=== PATIENT | male | born 1995 | race Two or more races ===

== ENCOUNTER 2020-11-05 00:23 | Emergency (ER) | payer OTHER ==
[2020-11-05] MEDS ORDERED: PROCHLORPERAZINE 10 MG/2 ML VIAL IVP STA (01:38)
[2020-11-05] MEDS ORDERED: KETOROLAC 30 MG/ML VIAL IVP STA (01:38)
[2020-11-05] MEDS ORDERED: SODIUM CHLORIDE 0.9% 1,000 ML IV STA (01:38)
[2020-11-05] MEDS ORDERED: diphenhydrAMINE INJ 50 MG/ML VIAL IVP STA (01:38)
[2020-11-05] MEDS ORDERED: DEXAMETHASONE 10 MG/ML VIAL IVP STA (01:43)
--- NOTE | 2020-11-05 02:12 | ED Physician Documentation ---
PD HPI HEADACHE - Stated complaint Stated Complaint: VOMITING, WEAKNESS - Chief complaint Chief Complaint: Abd Pain - History obtained from History obtained from: Patient - History of Present Illness Timing - onset: Enter time (1230), Today Timing - onset during: Rest Timing - duration: Hours Timing - details: Abrupt onset, Still present Worst headache ever?: No: Worst headache ever? Location: Front Quality: Aching Associated symptoms: Nausea, Vomiting. No: Fever, Stiff neck, Weakness, Numbness, Syncope, Seizure, Eye pain, Vision changes Improved by: Rest, Dark room, Quiet Worsened by: Light, Noise Contributing factors: No: Anticoagulated Similar symptoms before: Diagnosis (migraine) Recently seen: Not recently seen - Additional information Additional information: Previously well 24-year-old male who has a history of migraines as a child has developed a headache earlier in the day today he subsequently developed some nausea and vomiting presents to the emergency department this evening with vomiting. He has persistence of the headache it is not as bad as it was and he does have still nausea. He believes his symptoms are improving. He has not had had to have migraine rescue previously. He has had a prior issue similar to this with nausea and vomiting that time was associated with what was assumed to be gastroenteritis. He does have use cannabis and not a lot of it and he has not had repeated episodes. Review of Systems Constitutional: denies: Fever Eyes: reports: Photophobia. denies: Decreased vision Ears: denies: Ear pain Nose: denies: Rhinorrhea / runny nose, Congestion Throat: denies: Sore throat Cardiac: denies: Chest pain / pressure, Palpitations Respiratory: denies: Dyspnea, Cough GI: reports: Nausea, Vomiting. denies: Abdominal Pain, Constipation, Diarrhea : denies: Dysuria, Frequency PD PAST MEDICAL HISTORY - Past Medical History Past Medical History: Yes Neuro: Migraines - Past Surgical History Past Surgical History: No - Present Medications Home Medications: Ambulatory Orders Medication Instructions Recorded Confirmed Ondansetron Odt [Zofran] 4 mg TL Q6H PRN #10 tablet 04/22/19 - Allergies Allergies/Adverse Reactions: Allergies Allergy/AdvReac Type Severity Reaction Status Date / Time latex AdvReac Rash Verified 11/05/20 00:26 - Social History Does the pt smoke?: No Smoking Status: Never smoker Does the pt drink ETOH?: No Does the pt have substance abuse?: Yes Substance Use and Type: Marijuana - Immunizations Immunizations are current?: Yes PD ED PE NORMAL - Vitals Vital signs reviewed: Yes (hypertensive ) - General General: Alert and oriented X 3, No acute distress, Well developed/nourished - HEENT HEENT: Atraumatic, PERRL, EOMI - Neck Neck: Supple, no meningeal sign, No bony TTP - Cardiac Cardiac: RRR, No murmur - Respiratory Respiratory: No respiratory distress, Clear bilaterally - Abdomen Abdomen: Normal bowel sounds, Soft, Non tender, Non distended, No organomegaly - Back Back: No CVA TTP, No spinal TTP - Derm Derm: Normal color, Warm and dry, No rash - Extremities Extremities: No deformity, No edema - Neuro Neuro: Alert and oriented X 3, branch service specialist 2-12 intact, No motor deficit, No sensory deficit, Normal speech Eye Opening: Spontaneous Motor: Obeys Commands Verbal: Oriented GCS Score: 15 - Psych Psych: Normal mood, Normal affect Results - Vitals Vitals: Vital Signs - 24 hr 11/05/20 00:26 Temperature 36.5 C Heart Rate 72 Respiratory 16 Rate Blood Pressure 145/84 H O2 Saturation 100 Oxygen O2 Source Room air PD MEDICAL DECISION MAKING - ED course Complexity details: reviewed old records, reviewed results, re-evaluated patient, considered differential, d/w patient ED course: 24-year-old male with a headache and vomiting is treated for migraine with a cocktail consisting of a liter of saline 30 mg of Toradol 10 mg of Compazine 25 mg of Benadryl and 10 mg of dexamethasone. Departure - Departure Disposition: 01 Home, Self Care Clinical Impression: Migraine Qualifiers: Migraine type: without aura Status migrainosus presence: without status migrainosus Intractability: not intractable Qualified Code(s): G43.009 - Migraine without aura, not intractable, without status migrainosus Condition: Stable Instructions: ED Headache Migraine Follow-Up: [facility] [Provider Group]
[2020-11-05 03:30] VITALS: BP 131/81
== END 2020-11-05 03:45 | disposition home or self-care (01) ==
LOC: ED 00:23
DX: G43.009 Migraine without aura, not intractable, without status migrainosus (principal)
CPT/HCPCS: 96374; 96375; 99284; 99285; J1200

== ENCOUNTER 2022-07-30 00:21 | Emergency (ER) | payer OTHER ==
--- NOTE | 2022-07-30 00:35 | ED Physician Documentation ---
PD HPI NVD - Stated complaint Stated Complaint: N/V/D/FEVER - Chief complaint Chief Complaint: Abd Pain - History obtained from History obtained from: Patient - Additonal information Additional information: HPI from patient. Patient complains of nausea, vomiting since 7 PM tonight. Has also had waxing and waning upper abdominal pain without exacerbating or ameliorating factors. A few hours prior to developing the nausea and vomiting, he developed a bifrontal headache associated with photophobia. He has had similar headaches before, which he is referring to as migraines although he says he has never been diagnosed with migraine headache. He had chills and sweats at home tonight, felt like he might have fever although he did not measure his temperature. He describes very mild diarrhea, which he says is not particularly unusual for him due to lactose intolerance. Review of Systems Constitutional: reports: Chills, Sweats Throat: denies: Sore throat Cardiac: reports: Reviewed and negative Respiratory: reports: Reviewed and negative GI: reports: Nausea, Vomiting, Diarrhea (mild). denies: Abdominal Pain, Abdominal Swelling, Constipation, Hematemesis, Bloody / black stool : denies: Dysuria, Frequency PD PAST MEDICAL HISTORY - Past Medical History Neuro: Migraines - Past Surgical History Past Surgical History: No - Present Medications Home Medications: Ambulatory Orders Medication Instructions Recorded Confirmed Ondansetron Odt [Zofran] 4 mg TL Q6H PRN #10 tablet 04/22/19 Prochlorperazine Maleate 10 mg PO Q6HR PRN #14 tablet 07/30/22 [Compazine] - Allergies Allergies/Adverse Reactions: Allergies Allergy/AdvReac Type Severity Reaction Status Date / Time latex AdvReac Rash Verified 07/30/22 00:30 - Social History Does the pt smoke?: No Smoking Status: Never smoker Does the pt drink ETOH?: No Does the pt have substance abuse?: Yes - Immunizations Immunizations are current?: Yes PD ED PE NORMAL - Vitals Vital signs reviewed: Yes - General General: Alert and oriented X 3, No acute distress, Well developed/nourished, Other (vomitus on shirt and in emesis bag) - HEENT HEENT: Moist mucous membranes - Neck Neck: Supple, no meningeal sign - Cardiac Cardiac: RRR, No murmur - Respiratory Respiratory: No respiratory distress, Clear bilaterally - Abdomen Abdomen: Normal bowel sounds, Soft, Non tender, Non distended - Derm Derm: Normal color, Warm and dry Results - Vitals Vitals: Vital Signs - 24 hr 07/30/22 07/30/22 07/30/22 00:28 04:24 05:12 Temperature 37.6 C Heart Rate 60 70 85 Respiratory 19 19 19 Rate Blood Pressure 133/93 H 105/74 149/107 H O2 Saturation 100 100 98 Oxygen O2 Source Room air - Labs Labs: Laboratory Tests 07/30/22 07/30/22 07/30/22 00:46 00:46 02:41 WBC 15.5 H RBC 5.40 Hgb 14.6 Hct 44.4 MCV 82.2 MCH 27.0 MCHC 32.9 RDW 13.3 Plt Count 409 MPV 7.9 Neut # (Auto) 12.6 H Lymph # (Auto) 2.3 Jewell # (Auto) 0.4 Eos # (Auto) 0.1 Baso # (Auto) 0.1 Absolute Nucleated RBC 0.00 Nucleated RBC % 0.0 Sodium 142 Potassium 3.8 Chloride 103 Carbon Dioxide 26 Anion Gap 13.0 BUN 11 Creatinine 1.0 Estimated GFR (MDRD) 91 Glucose 172 H Calcium 9.0 Total Bilirubin 0.6 AST 22 ALT 22 Alkaline Phosphatase 78 Total Protein 8.5 H Albumin 4.0 Globulin 4.5 H Albumin/Globulin Ratio 0.9 L Lipase 25 Urine Color YELLOW Urine Clarity CLEAR Urine pH 6.5 Ur Specific Diana 1.025 Urine Protein NEGATIVE Urine Glucose (UA) NEGATIVE Urine Ketones 40 H Urine Occult Blood TRACE-INTA Urine Nitrite NEGATIVE Urine Bilirubin NEGATIVE Urine Urobilinogen 0.2 (NORMAL) Ur Leukocyte Esterase NEGATIVE Ur Microscopic Review NOT INDICATED Urine Culture Comments NOT INDICATED PD Medical Decision Making - ED course Complexity details: reviewed results, re-evaluated patient, considered differential, d/w patient ED course: Tests ordered and results reviewed by me: CBC, ear abdominal panel. He is given 1 L IV normal saline as well as 4 mg IV Zofran and 30 mg IV Toradol. On reevaluation, patient reports feeling much improved. He is given a second dose of 4 mg IV Zofran for some residual nausea. Unfortunately, he was unable to tolerate a p.o. fluid challenge. Thus, he is given a second liter of normal saline IV and 10 mg of IV Compazine. Leukocytosis is noted on the CBC (15.5 WBC). However, he is nontender on initial exam as well as on multiple reexaminations. Thus, emergent imaging is not performed at this time. After the patient was given the IV Compazine, and approximately 500 cc of the second liter had been administered, the patient is now saying he feels the symptoms are adequately controlled and that he is comfortable being discharged home. He is given a take-home pack of ondansetron, and a prescription for prochlorperazine is electronically submitted to the [facility] in [place]. Return precautions are discussed. Test results were reviewed with the patient. Departure - Departure Disposition: Home, Self Care Clinical Impression: Vomiting Qualifiers: Vomiting type: unspecified Nausea presence: with nausea Qualified Code(s): R11.2 - Nausea with vomiting, unspecified Headache Qualifiers: Headache type: unspecified Headache chronicity pattern: acute headache Intractability: not intractable Qualified Code(s): R51.9 - Headache, unspecified Condition: Good Instructions: ED Nausea Vomiting Prescriptions: Prochlorperazine Maleate [Compazine] 10 mg PO Q6HR PRN #14 tablet PRN Reason: Nausea / Vomiting Comments: There were no concerning nor diagnostic findings on tonight's test. The cause of your symptoms is not apparent at this time. I have electronically submitted a prescription for prochlorperazine (antinausea medication) to the [facility] in [place]. Please return to the emergency department for reevaluation if your symptoms worsen, or if you develop new/concerning signs/symptoms (such as fever, blood in your vomit or stool, worsening abdominal pain, inability to tolerate liquids orally). Discharge Date/Time: 07/30/22 05:13
[2022-07-30 00:55] LABS: BASOPHILS # (AUTO) 0.1 10^3/uL (0.0-0.1); BASOPHILS % (AUTO) 0.5 %; EOSINOPHILS # (AUTO) 0.1 10^3/uL (0.0-0.7); EOSINOPHILS % (AUTO) 0.4 %; HCT - HEMATOCRIT 44.4 % (42.0-52.0); HGB - HEMOGLOBIN 14.6 g/dL (14.0-18.0); LYMPHOCYTES # (AUTO) 2.3 10^3/uL (1.5-3.5); LYMPHOCYTES % (AUTO) 14.8 %; MEAN CORPUSCULAR HGB CONC 32.9 g/dL (32.0-36.0); MEAN CORPUSCULAR VOLUME 82.2 fL (80.0-94.0); MEAN PLATELET VOLUME 7.9 fL (7.4-11.4); MONOCYTES # (AUTO) 0.4 10^3/uL (0.0-1.0); MONOCYTES % (AUTO) 2.5 %; NEUTROPHILS # (AUTO) 12.6 10^3/uL (1.5-6.6); NEUTROPHILS % (AUTO) 81.3 %; PLT - PLATELET COUNT 409 10^3/uL (130-450); RED CELL DISTRIBUTION WIDTH 13.3 % (12.0-15.0); WHITE BLOOD COUNT 15.5 x10^3/uL (4.8-10.8)
[2022-07-30 01:08] LABS: ALBUMIN/GLOBULIN RATIO 0.9 (1.0-2.2); BILIRUBIN,TOTAL 0.6 mg/dL (0.2-1.0); POTASSIUM 3.8 mmol/L (3.5-5.0); TOTAL PROTEIN 8.5 g/dL (6.7-8.2)
[2022-07-30] MEDS ORDERED: KETOROLAC 30 MG/ML VIAL IVP STA (01:10)
[2022-07-30] MEDS ORDERED: ONDANSETRON 4 MG/2 ML VIAL IVP STA ×2 (01:10→03:06)
[2022-07-30] MEDS ORDERED: SODIUM CHLORIDE 0.9% 1,000 ML IV STA ×2 (01:10→03:53)
[2022-07-30 03:35] LABS: BILIRUBIN,URINE NEGATIVE (NEGATIVE); GLUCOSE, URINE (UA) NEGATIVE (NEGATIVE); KETONES,URINE (UA) 40 mg/dL (NEGATIVE); LEUKOCYTE ESTERASE, URINE NEGATIVE (NEGATIVE); NITRITE,URINE NEGATIVE (NEGATIVE); OCCULT BLOOD,URINE TRACE-INTA (NEGATIVE); PH,URINE 6.5 PH (5.0-7.5); PROTEIN,URINE NEGATIVE (NEGATIVE); UROBILINOGEN,URINE 0.2 (NORMAL) E.U./dL (NORMAL)
[2022-07-30 03:37] LABS: CLARITY,URINE CLEAR (CLEAR)
[2022-07-30] MEDS ORDERED: PROCHLORPERAZINE 10 MG/2 ML VIAL IVP STA (03:53)
[2022-07-30] MEDS ORDERED: ONDANSETRON ODT 4 MG Prepack 2 TL PRN (04:55)
[2022-07-30 05:17] VITALS: BP 149/107
== END 2022-07-30 05:13 | disposition home or self-care (01) ==
LOC: ED 00:21
DX: R51.9 Headache, unspecified (principal); R11.2 Nausea with vomiting, unspecified
CPT/HCPCS: 36415; 80053; 81001; 81003; 83690; 85025; 87086; 96374; 96375; 99283

== ENCOUNTER 2022-09-09 23:28 | Outpatient (CLI) | payer OTHER | END 2022-09-09 23:59 | disposition EMS.NT | LOC: EMS 23:28 | DX: S60.512A Abrasion of left hand, initial encounter (principal); M79.645 Pain in left finger(s); R22.32 Localized swelling, mass and lump, left upper limb; V47.5XXA Car driver injured in collision with fixed or stationary object in traffic accident, initial encounter; Y93.89 Activity, other specified; Y92.414 Local residential or business street as the place of occurrence of the external cause ==